=== PATIENT | female | born 1995 | race Two or more races ===

== ENCOUNTER 2021-08-16 23:55 | Emergency (ER) | payer SELFPAY ==
[2021-08-17] MEDS ORDERED: diphenhydrAMINE 50 MG/ML SDV IVPUSH ONE (04:24)
[2021-08-17] MEDS ORDERED: Lactated Ringers 1,000 ML IV ONE (04:24)
[2021-08-17] MEDS ORDERED: Prochlorperazine 10 MG/2 ML SDV IVPUSH ONE (04:24)
== END 2021-08-17 06:00 | disposition home or self-care (01) ==
LOC: JD.ED 23:55
DX: G43.909 Migraine, unspecified, not intractable, without status migrainosus (principal); Z88.0 Allergy status to penicillin
CPT/HCPCS: 96374; 96375; 99283; J0780; J1200; J7120